=== PATIENT | female | born 1985 | race Caucasian/White ===

== ENCOUNTER 2018-08-06 14:21 | Inpatient (IN) | payer OTHER ==
[~2018-08-06] VITALS: Ht 167.6 cm; Wt 75.3 kg
[2018-08-06] MEDS ORDERED: ONDANSETRON HCL 4MG/2ML INJ IV STA (15:21)
[2018-08-06] MEDS ORDERED: SODIUM CHLORIDE 0.9% 1,000 ML IV ONE ×2 (15:21)
[2018-08-06] MEDS ORDERED: ONDANSETRON HCL 4MG/2ML INJ IV ONE (15:30)
[2018-08-06] MEDS ORDERED: MORPHINE SULFATE 10 MG/ML CPJ IV ONE (15:30)
[2018-08-06 15:41] LABS: CLARITY URINE CLEAR (CLEAR); COLOR URINE YELLOW (YELLOW); KETONES URINE NEGATIVE (NEGATIVE); LEUKOCYTE ESTERASE URINE NEGATIVE (NEGATIVE); NITRITE URINE NEGATIVE (NEGATIVE); OCCULT BLOOD URINE 3+ (NEGATIVE); PROTEIN URINE NEGATIVE (NEGATIVE); SPECIFIC GRAVITY URINE 1.007 (1.005-1.030); UROBILINOGEN URINE 0.2 E.U./dL (0.2-1.0)
[2018-08-06 17:18] LABS: BASOPHILS % 0.4 % (0.0-2.0); EOSINOPHILS % 0.4 % (0.0-5.0); HEMATOCRIT. 41.1 % (36.0-48.0); HEMOGLOBIN. 13.8 g/dL (12.0-16.0); LYMPHOCYTES % 14.1 % (20.0-50.0); MEAN CORPUSCULAR HEMOGLOBIN 29.2 pg (28.0-32.0); MEAN CORPUSCULAR VOLUME 87.1 fL (81.0-99.0); MEAN PLATELET VOLUME 7.3 fl (7.4-10.4); MONOCYTES % 7.9 % (2.0-8.0); NEUTROPHILS % 77.2 % (40.0-76.0); PLATELET 348 x1000/uL (130-400); RED BLOOD CELL COUNT 4.72 mill/uL (4.2-5.4); RED CELL DISTRIBUTION WIDTH 12.8 % (11.6-14.6)
[2018-08-06 17:20] LABS: CHLORIDE 104 mEq/L (98-107)
[2018-08-06 17:22] LABS: INR 1.1; PROTHROMBIN TIME 11.2 sec (9.1-11.1)
[2018-08-06 17:46] LABS: B-HCG QUANTITATIVE 5829 mIU/mL (<3)
[2018-08-06] MEDS ORDERED: VASOPRESSIN 20 UNIT/ML 1ML ONE (19:18)
[2018-08-06] MEDS ORDERED: MIDAZOLAM HCL 2 MG/2 ML VIAL ONE (19:22)
[2018-08-06] MEDS ORDERED: FENTANYL CITRATE/PF 50MCG/ML 2ML VIAL ONE ×2 (19:22→20:07)
[2018-08-06] MEDS ORDERED: PROPOFOL 200MG/20ML VIAL IV ONE (19:22)
[2018-08-06] MEDS ORDERED: NEOSTIGMINE METHYLSULFATE 1MG/ML 10 ML VIAL ONE (19:22)
[2018-08-06] MEDS ORDERED: ROCURONIUM BROMIDE 10MG/ML VIAL 5ML IV ONE (19:22)
[2018-08-06] MEDS ORDERED: LIDOCAINE HCL/PF 1% 10 MG/ML 5ML VIAL ONE (19:23)
[2018-08-06] MEDS ORDERED: METOCLOPRAMIDE HCL 10MG/2ML VIAL ONE (19:23)
[2018-08-06] MEDS ORDERED: SUCCINYLCHOLINE CHLORIDE 200MG/10ML IV ONE (19:23)
[2018-08-06] MEDS ORDERED: SODIUM CHLORIDE 0.9% 10ML VIAL ONE (19:23)
[2018-08-06] MEDS ORDERED: GLYCOPYRROLATE 0.2 MG/ML 2ML VIAL ONE (19:23)
[2018-08-06] MEDS ORDERED: ONDANSETRON HCL 4MG/2ML INJ ONE (19:23)
[2018-08-06] MEDS ORDERED: EPHEDRINE SULFATE 50MG/ML VIAL ONE (19:23)
[2018-08-06] MEDS ORDERED: CEFAZOLIN SODIUM 1000MG/VIAL ONE (19:23)
[2018-08-06] MEDS ORDERED: DEXAMETHASONE 4MG/ML 1ML VIAL ONE (19:23)
[2018-08-06] MEDS ORDERED: SODIUM CHLORIDE 0.9% 1,000 ML IV NR (20:41)
[2018-08-06] MEDS ORDERED: IBUPROFEN 400MG TABLET PO PRN (20:45)
[2018-08-06] MEDS ORDERED: MORPHINE SULFATE 10 MG/ML CPJ IV PRN (20:45)
[2018-08-06] MEDS ORDERED: ONDANSETRON HCL 4MG/2ML INJ IV PRN ×2 (20:45)
[2018-08-06] MEDS ORDERED: MEPERIDINE HCL/PF 25MG/ML CPJ IV PRN ×2 (20:45)
[2018-08-06] MEDS ORDERED: DIPHENHYDRAMINE 25MG CAPSULE PO PRN (20:45)
[2018-08-06] MEDS: KETOROLAC 30MG/ML VIAL IV PRN (21:02)
[2018-08-06] MEDS: HYDROMORPHONE HCL/PF 2MG/ML CPJ IV PRN ×2 (21:05→21:23)
[2018-08-06 22:00] VITALS: BP 104/56
[2018-08-06 23:19] VITALS: BP 104/56
[2018-08-07] VITALS: BP 104/62
[2018-08-07] MEDS: DEXT 5%/LACTATED RINGERS 1,000 ML IV SCH ×4 (00:58→21:49)
[2018-08-07] MEDS: SIMETHICONE 80MG TABLET CHEW PO SCH ×5 (02:13→21:39)
[2018-08-07] MEDS: HYDROCODONE/ACETAMINOPHEN 5/325MG TABLET PO PRN ×3 (03:20→22:51)
[2018-08-07 04:00] VITALS: BP 102/63
[2018-08-07 06:33] LABS: BASOPHILS % 0.1 % (0.0-2.0); HEMATOCRIT. 30.2 % (36.0-48.0); HEMOGLOBIN. 10.2 g/dL (12.0-16.0); LYMPHOCYTES % 7.5 % (20.0-50.0); MEAN CORPUSCULAR HEMOGLOBIN 29.4 pg (28.0-32.0); MEAN CORPUSCULAR VOLUME 87.1 fL (81.0-99.0); MEAN PLATELET VOLUME 7.3 fl (7.4-10.4); MONOCYTES % 5.8 % (2.0-8.0); NEUTROPHILS % 86.6 % (40.0-76.0); PLATELET 235 x1000/uL (130-400); RED BLOOD CELL COUNT 3.46 mill/uL (4.2-5.4); RED CELL DISTRIBUTION WIDTH 12.8 % (11.6-14.6)
[2018-08-07 08:00] VITALS: BP 94/43
[2018-08-07] MEDS: IBUPROFEN 800MG TABLET PO PRN (08:38)
[2018-08-07] MEDS: KETOROLAC 30MG/ML VIAL IV PRN (10:33)
[2018-08-07 12:00] VITALS: BP 85/52
[2018-08-07] MEDS ORDERED: ALPRAZOLAM 0.25 MG TABLET PO PRN (13:30)
[2018-08-07] MEDS: HYDROMORPHONE HCL/PF 2MG/ML CPJ IV PRN ×2 (14:17→18:18)
[2018-08-07 16:00] VITALS: BP 98/59
[2018-08-07 20:00] VITALS: BP 103/69
[2018-08-07] MEDS: DOCUSATE SODIUM 100MG CAPSULE PO SCH (21:39)
[2018-08-08] VITALS (7 sets, daily range): BP systolic 98–124; BP diastolic 54–82
[2018-08-08 07:41] LABS: BASOPHILS % 0.7 % (0.0-2.0); EOSINOPHILS % 2.2 % (0.0-5.0); HEMATOCRIT. 32.1 % (36.0-48.0); HEMOGLOBIN. 10.7 g/dL (12.0-16.0); LYMPHOCYTES % 39.3 % (20.0-50.0); MEAN CORPUSCULAR HEMOGLOBIN 29.3 pg (28.0-32.0); MEAN PLATELET VOLUME 7.3 fl (7.4-10.4); NEUTROPHILS % 48.8 % (40.0-76.0); PLATELET 266 x1000/uL (130-400); RED BLOOD CELL COUNT 3.65 mill/uL (4.2-5.4); RED CELL DISTRIBUTION WIDTH 12.7 % (11.6-14.6)
[2018-08-08] MEDS: SIMETHICONE 80MG TABLET CHEW PO SCH ×3 (08:32→20:21)
[2018-08-08] MEDS: HYDROMORPHONE HCL/PF 2MG/ML CPJ IV PRN (08:32)
[2018-08-08] MEDS: HYDROCODONE/ACETAMINOPHEN 5/325MG TABLET PO PRN ×2 (08:41→16:11)
[2018-08-08] MEDS: DOCUSATE SODIUM 100MG CAPSULE PO SCH (20:22)
[2018-08-08] MEDS: IBUPROFEN 800MG TABLET PO PRN (20:24)
[2018-08-09] VITALS: BP 107/61
[2018-08-09] MEDS: HYDROCODONE/ACETAMINOPHEN 5/325MG TABLET PO PRN ×2 (02:01→07:48)
[2018-08-09 04:00] VITALS: BP 103/56
[2018-08-09] MEDS ORDERED: MULT-1146 MT (06:48)
[2018-08-09] MEDS ORDERED: FERR325T6 MT (06:50)
[2018-08-09] MEDS ORDERED: IBUP-2029 MT (06:53)
[2018-08-09] MEDS ORDERED: HYDR-4001 PO (06:54)
[2018-08-09] MEDS: SIMETHICONE 80MG TABLET CHEW PO SCH (07:48)
[2018-08-09 08:00] VITALS: BP 122/78
== END 2018-08-09 11:30 | disposition home or self-care (01) | DRG 817 ==
LOC: ER 14:57 → 6EST 18:23 → EDBEDREQ 18:26 → EDBEDREQSVC 18:26 → ENRESERV 19:27
PROVIDERS: ADMIT Specialist; ATTEND Internal Medicine
PROC: 0UPD0HZ Removal of Contraceptive Device from Uterus and Cervix, Open Approach (ICD-10-PCS; principal; 2018-08-06)
PROC: 10D27ZZ Extraction of Products of Conception, Ectopic, Via Natural or Artificial Opening (ICD-10-PCS; 2018-08-06)
DX: O00.101 Right tubal pregnancy without intrauterine pregnancy (principal); K66.1 Hemoperitoneum; D64.9 Anemia, unspecified; Z88.9 Allergy status to unspecified drugs, medicaments and biological substances; Z97.5 Presence of (intrauterine) contraceptive device; O90.81 Anemia of the puerperium; O26.899 Other specified pregnancy related conditions, unspecified trimester
CPT/HCPCS: 36415; 76801; 84702; 86850; 86900; 88300; 88305; 96361; 96374; 99285; J0330; J0690; J1100; J1170; J1885; J2175; J2250; J2405; J2704; J2710; J2765; J3010; J3490; J7030